=== PATIENT | female | born 1985 | race Caucasian/White ===

== ENCOUNTER 2018-05-26 08:42 | Emergency (ER) | payer MEDICAID ==
[2018-05-26] MEDS: IBUPROFEN 600 MG TAB PO (09:06)
== END 2018-05-26 09:20 | disposition home or self-care (01) ==
LOC: FTE 08:42
DX: J02.9 Acute pharyngitis, unspecified (principal)
CPT/HCPCS: 99283; Z7502

== ENCOUNTER 2018-11-10 10:19 | Emergency (ER) | payer MEDICAID ==
[2018-11-10] MEDS: IBUPROFEN 800 MG TAB PO (11:02)
== END 2018-11-10 12:49 | disposition home or self-care (01) ==
LOC: E/R 10:19
DX: R07.9 Chest pain, unspecified (principal)
CPT/HCPCS: 71045; 93005; 99284-25